=== PATIENT | female | born 1995 | race African-American/Black ===

== ENCOUNTER 2017-07-06 12:53 | Inpatient (IN) | payer OTHER ==
[~2017-07-06] VITALS: Ht 165.1 cm; Wt 60.3 kg
[2017-07-06] MEDS ORDERED: CARBOPROST TROMETHAMINE 250 MCG/ML AMPUL IM PRN (13:30)
[2017-07-06] MEDS ORDERED: NALOXONE HCL 0.4 MG/ML 1ML VIAL IM PRN (13:30)
[2017-07-06] MEDS ORDERED: METHYLERGONOVINE MALEATE 0.2 MG/ML IM PRN (13:30)
[2017-07-06] MEDS ORDERED: BUTORPHANOL TARTRATE 2 MG/ML VIAL IV PRN (13:30)
[2017-07-06] MEDS ORDERED: MISOPROSTOL 100MCG TABLET VG SCH (13:30)
[2017-07-06] MEDS ORDERED: LIDOCAINE HCL 1% 20ML VIAL (Pyxis) INJ INFIL SCH (13:30)
[2017-07-06] MEDS ORDERED: AMPICILLIN 2,000 MG in SODIUM CHLORIDE 0.9% 100 ML IV SCH (13:30)
[2017-07-06] MEDS: LACTATED RINGERS 1,000 ML IV SCH ×3 (14:09→19:10)
[2017-07-06 14:15] LABS: BASOPHILS % 0.7 % (0.0-2.0); HEMATOCRIT. 30.6 % (36.0-48.0); LYMPHOCYTES % 14.8 % (20.0-50.0); MEAN CORPUSCULAR HEMOGLOBIN 26.9 pg (28.0-32.0); MEAN CORPUSCULAR VOLUME 82.1 fL (81.0-99.0); MEAN PLATELET VOLUME 8.5 fl (7.4-10.4); NEUTROPHILS % 77.5 % (40.0-76.0); PLATELET 217 x1000/uL (130-400); RED BLOOD CELL COUNT 3.73 mill/uL (4.2-5.4); RED CELL DISTRIBUTION WIDTH 13.3 % (11.6-14.6)
[2017-07-06 14:17] LABS: CLARITY URINE CLEAR (CLEAR); COLOR URINE YELLOW (YELLOW); GLUCOSE URINE NEGATIVE (NEGATIVE); KETONES URINE 1+ (NEGATIVE); LEUKOCYTE ESTERASE URINE 1+ (NEGATIVE); NITRITE URINE NEGATIVE (NEGATIVE); OCCULT BLOOD URINE 1+ (NEGATIVE); PH URINE 7.5 (4.5-8.0); PROTEIN URINE NEGATIVE (NEGATIVE); SPECIFIC GRAVITY URINE 1.012 (1.005-1.030)
[2017-07-06 14:23] LABS: PARTIAL THROMBOPLASTIN TIME 25.4 sec (23.4-31.0); PROTHROMBIN TIME 10.2 sec (9.4-11.6)
[2017-07-06] MEDS ORDERED: ONDANSETRON HCL 4MG/2ML VIAL IV PRN (14:30)
[2017-07-06] MEDS ORDERED: BUPIVACAINE HCL/NS/PF EPIDURAL 100 ML EP SCH (14:30)
[2017-07-06] MEDS ORDERED: BUPIVACAINE HCL/PF 0.25% (2.5MG/ML) 10ML ONE (14:36)
[2017-07-06] MEDS ORDERED: BUPIVACAINE HCL/NS/PF EPIDURAL 100 ML EP ONE ×2 (14:36→22:03)
[2017-07-06] MEDS ORDERED: FENTANYL CITRATE/PF 50MCG/ML 2ML VIAL ONE ×2 (14:36→22:04)
[2017-07-06 14:50] LABS: *AMPHETAMINES SCREEN URINE NEGATIVE (NEGATIVE); *BARBITURATES SCREEN URINE NEGATIVE (NEGATIVE); *BENZODIAZEPINES SCREEN URINE NEGATIVE (NEGATIVE); *COCAINE SCREEN URINE NEGATIVE (NEGATIVE); CANNABINOID URINE SCREEN NEGATIVE (NEGATIVE); METHADONE URINE SCREEN NEGATIVE (NEGATIVE); OPIATES URINE SCREEN NEGATIVE (NEGATIVE); PHENCYCLIDINE URINE SCREEN NEGATIVE (NEGATIVE)
[2017-07-06 14:55] LABS: RUBELLA IGG 6.7 IU/mL (4.99-10)
[2017-07-06 14:56] LABS: HEPATITIS B SURFACE ANTIGEN NEGATIVE
[2017-07-06] MEDS: DEXT 5%/LR + PITOCIN 20UNITS/L 1,000 ML IV SCH (18:16)
[2017-07-06] MEDS: AMPICILLIN 1,000 MG in SODIUM CHLORIDE 0.9% 50 ML IV SCH (20:52)
[2017-07-06] MEDS ORDERED: LIDOCAINE HCL/PF 2% 20MG/ML 5 ML/VIAL ONE (22:00)
[2017-07-07] MEDS ORDERED: LIDOCAINE HCL/PF 2% 20MG/ML 5 ML/VIAL ONE ×3 (01:36→07:07)
[2017-07-07] MEDS ORDERED: FENTANYL CITRATE/PF 50MCG/ML 2ML VIAL ONE ×2 (01:37→03:17)
[2017-07-07] MEDS: AMPICILLIN 1,000 MG in SODIUM CHLORIDE 0.9% 50 ML IV SCH ×2 (02:01→07:46)
[2017-07-07] MEDS: LACTATED RINGERS 1,000 ML IV SCH ×2 (02:27→08:51)
[2017-07-07] MEDS ORDERED: BUPIVACAINE HCL/NS/PF EPIDURAL 100 ML EP ONE (03:17)
[2017-07-07] MEDS ORDERED: FENTANYL CITRATE/PF 50MCG/ML 2ML VIAL IV PRN (03:45)
[2017-07-07] MEDS ORDERED: LIDOCAINE HCL 1% 20ML VIAL (Pyxis) INJ ONE (08:01)
[2017-07-07] MEDS: DEXT 5%/LR + PITOCIN 20UNITS/L 1,000 ML IV SCH ×2 (10:09→10:25)
[2017-07-07] MEDS ORDERED: DEXT 5%/LR + PITOCIN 20UNITS/L 1,000 ML IV SCH (10:20)
[2017-07-07] MEDS ORDERED: RHO(D) IMMUNE GLOBULIN 300 MCG/SYR IM PRN (10:30)
[2017-07-07] MEDS: IBUPROFEN 400MG TABLET PO PRN ×2 (10:30→21:07)
[2017-07-07 12:25] VITALS: BP 109/67
[2017-07-07 12:40] VITALS: BP 122/64
[2017-07-07 15:41] VITALS: BP 109/59
[2017-07-07] MEDS ORDERED: TETANUS, DIPHTHERIA, PERTUSSIS VAC/PF 0.5ML (>7YR OLD) IM ONE (16:30)
[2017-07-07 20:00] VITALS: BP 112/63
[2017-07-07] MEDS: METRONIDAZOLE 500MG TABLET PO SCH (21:07)
[2017-07-07] MEDS: ACETAMINOPHEN WITH CODEINE 300/30MG TABLET PO PRN (21:08)
[2017-07-08] VITALS: BP 112/73
[2017-07-08 07:50] VITALS: BP 105/69
[2017-07-08 08:02] LABS: BASOPHILS % 0.2 % (0.0-2.0); EOSINOPHILS % 0.1 % (0.0-5.0); HEMATOCRIT. 22.5 % (36.0-48.0); HEMOGLOBIN. 7.2 g/dL (12.0-16.0); MEAN CORPUSCULAR HEMOGLOBIN 26.7 pg (28.0-32.0); MEAN CORPUSCULAR VOLUME 82.8 fL (81.0-99.0); MEAN PLATELET VOLUME 8.6 fl (7.4-10.4); MONOCYTES % 9.5 % (2.0-8.0); NEUTROPHILS % 73.2 % (40.0-76.0); PLATELET 174 x1000/uL (130-400); RED BLOOD CELL COUNT 2.72 mill/uL (4.2-5.4); RED CELL DISTRIBUTION WIDTH 13.5 % (11.6-14.6)
[2017-07-08] MEDS: METRONIDAZOLE 500MG TABLET PO SCH ×2 (08:49→21:15)
[2017-07-08] MEDS: BENZOCAINE/LANOLIN/ALOE VERA SPRAY TOP PRN (08:49)
[2017-07-08] MEDS: IBUPROFEN 800MG TABLET PO PRN (12:04)
[2017-07-08 16:05] VITALS: BP 108/69
[2017-07-08] MEDS: ACETAMINOPHEN WITH CODEINE 300/30MG TABLET PO PRN (20:48)
[2017-07-08] MEDS: IBUPROFEN 400MG TABLET PO PRN (20:48)
[2017-07-08 23:50] VITALS: BP 108/58
[2017-07-09] MEDS: BENZOCAINE/LANOLIN/ALOE VERA SPRAY TOP PRN (08:20)
[2017-07-09] MEDS: METRONIDAZOLE 500MG TABLET PO SCH (08:20)
[2017-07-09 08:37] VITALS: BP 114/68
[2017-07-09 09:26] VITALS: BP 114/68
[2017-07-09] MEDS: IBUPROFEN 800MG TABLET PO PRN (09:26)
== END 2017-07-09 12:55 | disposition home or self-care (01) | DRG 560 ==
LOC: OBSVTOIN 12:53 → L&D 12:53 → 7EST PP/OB 07-07 12:05
PROVIDERS: ADMIT Obstetrics & Gynecology; ATTEND Obstetrics & Gynecology
PROC: 0W8NXZZ Division of Female Perineum, External Approach (ICD-10-PCS; 2017-07-07)
PROC: 3E0S3CZ (ICD-10-PCS; 2017-07-07)
PROC: 00HU33Z Insertion of Infusion Device into Spinal Canal, Percutaneous Approach (ICD-10-PCS; 2017-07-07)
PROC: 10D07Z6 Extraction of Products of Conception, Vacuum, Via Natural or Artificial Opening (ICD-10-PCS; principal; 2017-07-07 09:49)
DX: O77.0 Labor and delivery complicated by meconium in amniotic fluid (principal); O98.32 Other infections with a predominantly sexual mode of transmission complicating childbirth; A59.9 Trichomoniasis, unspecified; D64.9 Anemia, unspecified; O99.03 Anemia complicating the puerperium; O69.1XX0 Labor and delivery complicated by cord around neck, with compression, not applicable or unspecified; Z37.0 Single live birth; Z3A.38 38 weeks gestation of pregnancy
CPT/HCPCS: 36415; 80305; 81001; 85025; 85610; 85730; 86592; 86703; 86762; 86850; 86900; 87340; 90715; 99281; G0378; J0290; J2590; J3010; J3490; J7050; J7120; A4315